=== PATIENT | male | born 1975 | race Two or more races ===

== ENCOUNTER → 2020-08-16 16:15 | Outpatient (CLI) | payer OTHER | END | disposition home or self-care (01) | LOC: PPH VACUNA 16:15 | DX: Z23 Encounter for immunization (principal) ==

== ENCOUNTER 2022-04-17 04:45 | Emergency (ER) | payer OTHER ==
[~2022-04-17] VITALS: Ht 175.3 cm; Wt 132.4 kg
[2022-04-17] MEDS ORDERED: CIPRO500 MG (04:51)
[2022-04-17] MEDS ORDERED: DICY20TA (04:52)
== END 2022-04-17 10:08 | disposition home or self-care (01) ==
LOC: ER 04:45
DX: R10.32 Left lower quadrant pain (principal); N20.0 Calculus of kidney; K57.30 Diverticulosis of large intestine without perforation or abscess without bleeding; Z88.0 Allergy status to penicillin